=== PATIENT | male | born 1940 | race African-American/Black ===

== ENCOUNTER 2024-12-31 08:38 | Emergency (ER) | payer MEDICARE ==
[~2024-12-31] VITALS: Ht 175.3 cm; Wt 76.9 kg
[2024-12-31 08:45] VITALS: O2SAT 97
[2024-12-31 09:40] VITALS: BP 154/80; PULSE 96; RESP 16; TEMP 36.9; O2SAT 98
== END 2024-12-31 09:41 | disposition home or self-care (01) ==
LOC: ER 08:38
DX: T83.9XXA Unspecified complication of genitourinary prosthetic device, implant and graft, initial encounter (principal); N40.0 Benign prostatic hyperplasia without lower urinary tract symptoms; Z98.890 Other specified postprocedural states; Y92.89 Other specified places as the place of occurrence of the external cause
CPT/HCPCS: 99282

== ENCOUNTER 2025-01-06 18:48 | Emergency (ER) | payer MEDICARE ==
[~2025-01-06] VITALS: Ht 175.3 cm; Wt 77.0 kg
[2025-01-06 18:51] VITALS: TEMP 36.7; O2SAT 96
[2025-01-06 20:53] LABS: CLARITY URINE TURBID (CLEAR); COLOR URINE YELLOW (YELLOW); GLUCOSE URINE NEGATIVE (NEGATIVE); KETONES URINE NEGATIVE (NEGATIVE); LEUKOCYTE ESTERASE URINE 3+ (NEGATIVE); NITRITE URINE NEGATIVE (NEGATIVE); OCCULT BLOOD URINE 2+ (NEGATIVE); PH URINE 7.5 (4.5-8.0); PROTEIN URINE 3+ (NEGATIVE); SPECIFIC GRAVITY URINE 1.012 (1.005-1.030); UROBILINOGEN URINE 1.0 E.U./dL (0.2-1.0)
[2025-01-06 21:18] LABS: RBC URINE 25-50 /hpf (0-2); SQUAMOUS EPITHELIAL CELL URINE RARE /lpf (RARE/1+); WBC URINE 50-100 /hpf (0-2)
[2025-01-06 21:19] LABS: AMORPHOUS SEDIMENT URINE 2+ /lpf; BACTERIA URINE 4+; MUCUS URINE 2+ /lpf (NONE/TRACE)
[2025-01-06] MEDS ORDERED: CEFP200T13 MT (21:23)
[2025-01-06 21:43] VITALS: BP 150/87; PULSE 64; RESP 15; O2SAT 96
[2025-01-06] MEDS: LOSARTAN 100 MG TABLET PO ONE (21:45)
== END 2025-01-06 21:53 | disposition home or self-care (01) ==
LOC: ER 18:48
DX: N39.0 Urinary tract infection, site not specified (principal); N40.1 Benign prostatic hyperplasia with lower urinary tract symptoms; Z98.890 Other specified postprocedural states
CPT/HCPCS: 51702; 81003; 87077; 87186; 99284

== ENCOUNTER 2025-03-02 16:54 | Emergency (ER) | payer MEDICARE ==
[~2025-03-02] VITALS: Ht 175.3 cm; Wt 77.0 kg
[~2025-03-02 16:54] MED LIST: CEFP200T13 MT
[2025-03-02 17:11] VITALS: O2SAT 97
[2025-03-02 20:14] LABS: BASOPHILS % 0.3 % (0.0-2.0); EOSINOPHILS % 0.1 % (0.0-5.0); HEMATOCRIT. 40.4 % (42.0-52.0); HEMOGLOBIN. 13.3 g/dL (14.0-18.0); LYMPHOCYTES % 7.6 % (20.0-50.0); MEAN PLATELET VOLUME 8.4 fl (7.4-10.4); MONOCYTES % 4.7 % (2.0-8.0); NEUTROPHILS % 87.3 % (40.0-76.0); PLATELET 239 x1000/uL (130-400); RED BLOOD CELL COUNT 4.83 mill/uL (4.7-6.1); RED CELL DISTRIBUTION WIDTH 15.0 % (11.6-14.6)
[2025-03-02 20:26] LABS: CLARITY URINE TURBID (CLEAR); COLOR URINE YELLOW (YELLOW); GLUCOSE URINE NEGATIVE (NEGATIVE); KETONES URINE NEGATIVE (NEGATIVE); LEUKOCYTE ESTERASE URINE 2+ (NEGATIVE); NITRITE URINE NEGATIVE (NEGATIVE); OCCULT BLOOD URINE NEGATIVE (NEGATIVE); PH URINE >=9.0 (4.5-8.0); PROTEIN URINE 2+ (NEGATIVE); SPECIFIC GRAVITY URINE 1.013 (1.005-1.030); UROBILINOGEN URINE 1.0 E.U./dL (0.2-1.0)
[2025-03-02 20:27] LABS: CREATININE 1.1 mg/dL (0.6-1.3); TROPONIN I HIGH SENSITIVITY 20 ng/L (3.0-53)
[2025-03-02 20:28] LABS: UREA NITROGEN BLOOD 9 mg/dL (9-23)
[2025-03-02 20:29] LABS: ASPARTATE AMINOTRANSFERASE 11 IU/L (<34); BILIRUBIN DIRECT 0.2 mg/dL (<=3.0)
[2025-03-02 20:30] LABS: BILIRUBIN TOTAL 0.8 mg/dL (0.1-1.0); PROTEIN TOTAL 6.8 g/dL (6.0-8.3)
[2025-03-02 20:42] LABS: BACTERIA URINE 3+; RBC URINE NONE SEEN /hpf (0-2); SQUAMOUS EPITHELIAL CELL URINE RARE /lpf (RARE/1+)
[2025-03-02 20:43] LABS: COARSE GRANULAR CASTS URINE 0-5 /lpf; MUCUS URINE 1+ /lpf (NONE/TRACE)
[2025-03-02 21:12] VITALS: BP 150/82; PULSE 65; RESP 16; TEMP 36.8; O2SAT 98
[2025-03-02] MEDS ORDERED: SULF1TAB48 MT (21:13)
[2025-03-02] MEDS ORDERED: SULFAMETHOXAZOLE/TRIMETHOPRIM 800/160MG TABLET PO ONE (21:15)
== END 2025-03-02 21:39 | disposition left against medical advice (07) ==
LOC: ER 16:54 → CMPBEDREQ 03-03 07:22
DX: T83.091A Other mechanical complication of indwelling urethral catheter, initial encounter (principal); I10 Essential (primary) hypertension; Y84.6 Urinary catheterization as the cause of abnormal reaction of the patient, or of later complication, without mention of misadventure at the time of the procedure
CPT/HCPCS: 36415; 51702; 80048; 80076; 81003; 83735; 84484; 85025; 93005; 99284